=== PATIENT | female | born 1955 | race Caucasian/White ===

== ENCOUNTER → 2020-02-18 12:59 | Outpatient (BNVA) | payer MEDICARE, SELFPAY | PROVIDERS: Family Provider Internal Medicine; Visit Provider Nurse Practitioner Family | DX: J02.9 Acute pharyngitis, unspecified (principal); B37.3 Candidiasis of vulva and vagina | CPT/HCPCS: 87071; 87880 ==

== ENCOUNTER 2020-03-10 10:12 | Day surgery (SDC) | payer MEDICARE, SELFPAY ==
[2020-03-09 16:11] VITALS: BMI 26.6
[2020-03-10 10:41] VITALS: BP 104/60; PULSE 93; RESP 18; TEMP 36.3; O2SAT 98
[2020-03-10] MEDS: sodium chloride 0.9% 1,000 ML 30 ML IV (11:06)
--- NOTE | 2020-03-10 12:25 | W.PM.OPSUD ---
Surgery/Procedure H&P Update DATE OF PROCEDURE: March 10, 2020 DATE H&P PERFORMED: 03/09/20 PREOP DIAGNOSIS: obst PLANNED PROCEDURE: Operation Date: 03/10/20 11:30 Proposed Procedures p Colonoscopy 20238 K59.00(Not Applicable) - Aman Dubois MD
--- NOTE | 2020-03-10 12:39 | ANES.PREANE2 ---
Pre-Anesthetic Assessment Pre-Anesthetic Assessment: Height/Weight: Height 1.63 m Weight 70.307 kg Temp Pulse Resp BP Pulse Ox 97.3 F L 93 18 104/60 98 03/10/20 10:41 03/10/20 10:41 03/10/20 10:41 03/10/20 10:41 03/10/20 10:41 Preop Diagnosis: obst Proposed Procedure: Operation Date: 03/10/20 11:30 Proposed Procedures p Colonoscopy 91909 K59.00(Not Applicable) - Aman Dubois MD Last intake: Intake Last Liquid Date 03/09/20 Last Liquid Time 23:00 Last Solid Date 03/08/20 Last Solid Time 22:30 Social: Social History: No alcohol and No tobacco Exam: Pre-Anes Outpt Exam: alert, oriented x 3, clear to auscultation bilaterally and regular rate & rhythm Airway: Submandibular: WNL Cervical ROM: WNL MP: 2 Dentition: Other (teeth ok) History/ROS: No significant history except as noted Pulmonary: Pulmonary: None reported CV/HEM: CV/HEM: None reported : : None reported Hepatic: Hepatic: None reported GI: GI: None reported Metabolic: Metabolic: None reported Musc/skel: Musc/skel: None reported Neuropsych: Neuropsych: Anxiety and Depression Anesthetic Plan: ASA status: 2 Anesthesia: Anesthesia Evaluation and MAC Risk of > 500 ml blood loss (7ml/kg in children): No Meds/Allergies Current Medications: Current Medications Generic Name Dose Route Start Last Admin Trade Name Freq PRN Reason Stop Dose Admin Sodium Chloride 1,000 mls @ 30 ml s/hr 03/10/20 10:45 03/10/20 11:06 Sodium Chloride 0.9% IV 03/11/20 10:44 30 mls/hr .Q24H YESI Administration PFSH Anesthesia PFSH: Family History Father Diabetes Mother Cancer Other Heart disease Social History Smoking and tobacco status: never smoked Alcohol intake: never Marital status: service: No History of recent travel: No Current gender identity: Female Data Anesthesia Cardiac Studies: No Data to Display
[2020-03-10 12:40] VITALS: BP 107/61; PULSE 82; RESP 16; TEMP 36.7; O2SAT 100
--- NOTE | 2020-03-10 12:41 | ANE.PACU2 ---
Inpatient post-anesthesia follow up: Airway intact: Yes Vital signs: Temperature 98.0 F Pulse Rate 82 Respiratory Rate 16 Blood Pressure 107/61 Pulse Oximetry 100 Oxygen Delivery Me thod Nasal Cannula Oxygen Flow Rate 3.0 Fraction of Inspir ed Oxygen Hydration adequate: Yes Nausea and vomiting: No Mental status: Baseline
[2020-03-10 13:00] VITALS: BP 116/68; PULSE 90; RESP 20; O2SAT 100
== END 2020-03-10 13:05 | disposition home or self-care (01) ==
PROVIDERS: Visit Provider Internal Medicine
PROC: 0DJD8ZZ Inspection of Lower Intestinal Tract, Via Natural or Artificial Opening Endoscopic (ICD-10-PCS; CPT 45378; principal; 2020-03-10 11:30)
DX: K59.00 Constipation, unspecified (principal)
CPT/HCPCS: 12345; 45378; G0121; J0171; J2704; J7030

== ENCOUNTER → 2020-05-17 16:46 | Outpatient (BNVA) | payer MEDICARE, SELFPAY | PROVIDERS: Visit Provider Nurse Practitioner Family | DX: Z11.59 Encounter for screening for other viral diseases (principal); Z20.828 Contact with and (suspected) exposure to other viral communicable diseases; J06.9 Acute upper respiratory infection, unspecified | CPT/HCPCS: 87635 ==

== ENCOUNTER 2020-10-02 08:52 | Outpatient (CLI) | payer MEDICARE, SELFPAY ==
--- NOTE | 2020-10-02 08:55 | FL_ITS ---
WS: [id number] ESOPHAGRAM WITH FLUOROSCOPY HISTORY: DYSPHAGIA COMPARISON: None available. FLUOROSCOPY TIME: 1.3 minutes. Prior anterior cervical fusion in the cervical spine extending from C4 through C7. Esophagus and swallowing function: Patient swallowed the barium mixture without difficulty. No strict ures or mucosal abnormalities are identified. No webs or strictures are identified in the esophagus. Gastroesophageal reflux: None. Hiatal hernia: Very small reducible hiatal hernia. FL/FL barium swallow 26901 IMPRESSION: 1. No definite strictures or mucosal abnormalities or webs are noted in the es ophagus. 2. Small reducible hiatal hernia. 3. Prior anterior cervical fusion from C4 through C7.
== END 2020-10-02 08:53 | disposition home or self-care (01) ==
LOC: RADWPI 08:54
PROVIDERS: PCP Internal Medicine; Visit Provider Specialist
DX: R13.10 Dysphagia, unspecified (principal); K44.9 Diaphragmatic hernia without obstruction or gangrene; M43.22 Fusion of spine, cervical region
CPT/HCPCS: 74220

== ENCOUNTER 2020-10-03 09:06 | Outpatient (CLI) | payer MEDICARE, SELFPAY ==
--- NOTE | 2020-10-03 09:18 | FL_ITS ---
WS: [id number] MODIFIED BARIUM SWALLOW TECHNIQUE: Modified barium swallow with speech therapy using multiple consistencies. FLUOROSCOPY TIME: 3.1 minutes. CLINICAL INFORMATION: Other dysphagia COMPARISON: None. FINDINGS: Multiple consistencies utilized. Prior postoperative changes ACDF C4-C7. Delayed oropharyngeal phase with early spillage and pooling in the vallecula. Pooling in the vallecula duplicate patient's sympto ms. Penetration with thin liquids. No jose aspiration. Barium tablet delayed transit with stasis in the vallecula. Patient unable to swallow barium tablet. FL/FL barium swallow modifd 60074 IMPRESSION: 1. Delayed oropharyngeal phase with early spillage and pooling in the vallecul a. 2. Penetration with thin liquids.
== END 2020-10-03 09:07 | disposition home or self-care (01) ==
PROVIDERS: PCP Internal Medicine; Visit Provider Specialist
DX: R49.0 Dysphonia (principal)
CPT/HCPCS: 74230; 92611

== ENCOUNTER → 2021-02-09 00:01 | Outpatient (BNVA) | payer MEDICARE, SELFPAY | PROVIDERS: PCP Internal Medicine; Visit Provider Internal Medicine | DX: Z20.822 Contact with and (suspected) exposure to COVID-19 (principal); R06.00 Dyspnea, unspecified | CPT/HCPCS: 87635 ==

== ENCOUNTER 2021-02-15 10:35 | Outpatient (CLI) | payer MEDICARE, SELFPAY ==
[2021-02-15 11:06] LABS: Basophils % 0.8 %; Eosinophils # 0.2 10^3/uL (0.0-0.8); Eosinophils % 3.8 %; Hematocrit 36.9 % (37.0-47.0); Hemoglobin 12.1 g/dL (11.5-15.3); Lymphocytes # 2.3 10^3/uL (0.8-4.8); Lymphocytes % 48.4 %; Mean Corpuscular HGB Conc 32.8 g/dL (30.0-36.0); Mean Corpuscular Volume 91.3 fL (81-99); Monocytes # 0.3 10^3/uL (0.2-0.9); Monocytes % 6.1 %; Neutrophils # 1.95 10^3/uL (1.8-7.7); Neutrophils % 40.7 %; Nucleated Red Blood Cells % 0 %; Platelet Count 230 10^3/cmm (130-400); Red Blood Count 4.04 10^6/uL (4.1-5.3); White Blood Count 4.8 10^3/uL (4.0-10.0)
--- NOTE | 2021-02-15 11:14 | PFTS_ITS ---
Date of Study:02/15/21 Date of Dictation: 02/16/2021 MECHANICS: Pre bronchodilator Forced vital capacity (FVC) is normal.. Pre bronchodilator Forced expiratory volume in one second (FEV1) is normal. FEV1/FVC is normal. Postbronchodilator study not performed FLOW VOLUME LOOP:normal LUNG VOLUMES: not measured DIFFUSING CAPACITY FOR CARBON MONOXIDE: not measured . INTERPRETATION: The pre bronchodilator spirometry is normal. MTDD
[2021-02-15 11:51] LABS: Alanine Aminotransferase 18 U/L (0-33); Albumin Level 4.1 g/dL (3.5-5.2); Alkaline Phosphatase 109 IU/L (35-105); Anion Gap 12.5 (5-19); Aspartate Amino Transferase 18 U/L (0-32); Blood Urea Nitrogen 9 mg/dL (8-23); Carbon Dioxide 27 mmol/L (22-29); Chloride 97 mmol/L (98-107); Globulin 2.6 g/dL (1.3-4.6); Glomerular Filtration Rate 100.3 mL/min (90-130); Glucose 85 mg/dL (65-115); Osmolality Calculated 272 mOsm/kg (285-295); Potassium 4.5 mmol/L (3.5-5.1); Sodium 132 mmol/L (136-145); Thyroid Stimulating Hormone 4.17 uIU/mL (0.27-4.20); Total Bilirubin 0.4 mg/dL (0.15-1.2); Total Protein 6.7 g/dL (6.6-8.7)
== END 2021-02-15 10:36 | disposition home or self-care (01) ==
PROVIDERS: PCP Internal Medicine; Visit Provider Internal Medicine
DX: R06.09 Other forms of dyspnea (principal)
CPT/HCPCS: 36415; 80053; 84443; 85025; 94010

== ENCOUNTER 2021-02-16 07:26 | Outpatient (CLI) | payer MEDICARE, SELFPAY ==
[2021-02-16 07:38] VITALS: BMI 25.7
--- NOTE | 2021-02-16 08:24 | NMCV_ITS ---
NM emmanuel perf SPECT r/s* [id number] Brianda Agosto Age: 65 Gender: F : 1955 Exam Date: 02/16/2021 08:24 Ordering Phys: Aman Dubois MD Technologist: AUSTEN Watkins Exam Location: [facility] Indications: DYSPNEA STRESS TEST Please see separate stress test report in [facility] for full findings IMAGE PROTOCOL Rest/Stress 1 Exercise Day Radiopharmaceutical Dose (mCi) Administration Site Administered by Rest: Tc-99m 10.6 IV AUSTEN Kumar Sestaminathan Stress:Tc-99m 32.8 IV AUSTEN Kumar Sestamibi Rest: 16-Feb-2021 60 Discovery 630 Stress: 16-Feb-2021 30 Discovery 630 Radiopharmaceutical was injected at 85 % maximum heart rate. Images obtained in supine and prone position. SPECT RESULTS Technical Quality: Excellent Raw Data Analysis: Normal Image Corrections: No attenuation or motion correction applied Summed Stress Score: 0 Summed Rest Score: 0 Summed Difference Score: 0 PERFUSION FINDINGS SPECT images demonstrate homogeneous tracer distribution throughout the myocardium. FUNCTIONAL RESULTS (calculated via Gated SPECT) Stress Image LV EF (%): 93 Stress EDV (mL):43 TID: 0.87 Stress ESV (mL):3 Rest Image LV EF (%): 93 FUNCTIONAL FINDINGS: There is normal left ventricular systolic function. IMPRESSIONS Myocardial perfusion imaging is normal. EKG segment was documented separately. Reji Yao MD (Electronically Signed) Final Date: 16 February 2021 18:30 S
--- NOTE | 2021-02-16 08:24 | ECG_ITS ---
[facility] Test Date: 2021-02-16 Pat Name: Brianda Agosto Department: Room: Gender: Female Pin Puller: : 1955 Requested By: Aman Dubois Order Number: [id number] Terrence MD: AXEL DARBY Interpretive Statements NAME OF STUDY: EXERCISE SESTAMIBI STRESS TEST INDICATION: Read EXERCISE DATA: The patient was exercised by Lobo protocol. Baseline heart rate was 82 beats per minute. Baseline blood pressure was 150/84 millimeters of mercury. Target heart rate was 155 beats per minute. Maximum heart rate achieved was 133, which was 85 % of the target heart rate. Maximum blood pressure was 184/84 millimeters of mercury. Total exercise time was 7 minutes 24 seconds. Maximum METs achieved was 10.2, maximum VO2 was 35.7. The reason for ending the test was maximum effort achieved. The patient complained of shortness of breath during the stress test, which then resolved at the end of the test. ELECTROCARDIOGRAM: BASELINE: Sinus rhythm, normal axis, no significant ST-T changes at the baseline noted. EXERCISE: At the peak exercise level, no significant ST-T changes suggestive of ischemia noted. RECOVERY: During the recovery period, heart rate dropped appropriately. No significant ST-T changes in the recovery suggestive of ischemia noted. CONCLUSION: 1. Exercise capacity fair. 2. Heart rate response was appropriate. 3. Blood pressure response was appropriate. 4. Symptoms not suggestive of ischemia. 5. Electrocardiogram portion of the stress test was not suggestive of ischemia. Electronically Signed On 03-10-2021 20:36:04 CDT by AXEL DARBY [id number]
[2021-02-16 09:40] VITALS: BP 141/69; PULSE 85
== END 2021-02-16 07:27 | disposition home or self-care (01) ==
LOC: CDL 07:31
PROVIDERS: PCP Internal Medicine; Visit Provider Internal Medicine
DX: R06.09 Other forms of dyspnea (principal)
CPT/HCPCS: 78452; 93017; A9500

== ENCOUNTER → 2021-03-07 11:05 | Outpatient (BNVA) | payer MEDICARE, SELFPAY | PROVIDERS: PCP Internal Medicine; Visit Provider Nurse Practitioner Family | DX: Z20.822 Contact with and (suspected) exposure to COVID-19 (principal); J06.9 Acute upper respiratory infection, unspecified | CPT/HCPCS: 87635 ==

== ENCOUNTER 2021-03-13 07:53 | Outpatient (CLI) | payer MEDICARE, SELFPAY ==
[2021-03-13 08:48] VITALS: BP 120/75; PULSE 85; RESP 14; TEMP 36.8; O2SAT 97
[2021-03-13 09:42] VITALS: BP 132/79; PULSE 78; RESP 16; TEMP 37.1; O2SAT 97
[2021-03-13 10:29] VITALS: BP 149/73; PULSE 83; RESP 12; TEMP 37.2; O2SAT 98
== END 2021-03-13 15:49 | disposition home or self-care (01) ==
PROVIDERS: PCP Internal Medicine; Visit Provider Nurse Practitioner Family
DX: U07.1 COVID-19 (principal)
CPT/HCPCS: 96365

== ENCOUNTER → 2021-05-24 13:56 | Outpatient (BNVA) | payer MEDICARE, SELFPAY | PROVIDERS: PCP Internal Medicine; Visit Provider Registered Nurse Neonatal Intensive Care | DX: M54.9 Dorsalgia, unspecified (principal) | CPT/HCPCS: 81000 ==

== ENCOUNTER → 2021-09-06 15:44 | Outpatient (BNVA) | payer MEDICARE, SELFPAY | PROVIDERS: PCP Internal Medicine; Visit Provider Internal Medicine | DX: U09.9 Post COVID-19 condition, unspecified (principal); H91.90 Unspecified hearing loss, unspecified ear | CPT/HCPCS: 80053; 82607; 82746; 83550; 84443 ==

== ENCOUNTER 2021-11-15 14:38 | Emergency (ER) | payer MEDICARE, SELFPAY ==
[2021-11-15 14:51] VITALS: BP 179/88; PULSE 93; RESP 18; TEMP 36.9; O2SAT 97; BMI 27.4
--- NOTE | 2021-11-15 15:14 | W.ED.FALL ---
Documented by User: Bebeto Wolff DO 11/15/21 17:50 HPI - Fall General: Chief Complaint: Fall Stated Complaint: fall/facial injury Time Seen by Provider: 11/15/21 15:03 Source: patient Mode of arrival: ambulatory Limitations: no limitations History of Present Illness: Six 6-year-old female who was standing on some boxes try and get something off an upper shelf the boxes gave way she began to fall something she was reaching for fell off hit her in the upper lip she has a laceration to the upper lip no dental injury to her teeth she denies any other injury she did land on her tailbone conestat now firmly on the ground but declines any x-rays. She did not strike her head and was no loss consciousness Patient is a 66-year-old female comes to the ED for facial injury. Patient has a laceration to upper lip. Dr. Wolff wanted me to come in and close laceration. I was not involved in any other aspect of care for this patient. MD complaint: fall Onset (ago): hour(s) Fall from: standing Fall witnessed: no Place fall occurred: home Loss of consciousness: None Length of LOC: second(s) Prolonged down time: no Symptoms prior to fall: none Location of injury: head Severity: mild Associated symptoms-after fall: Denies abdominal pain, chest pain, confusion, difficulty walking, headache(s), hematuria, lightheadedness, neck pain, numbness, short of breath, vertigo or weakness Review of Systems Const: Denies: fever(s), chills, body aches, change in appetite, fatigue or malaise ENMT: Denies: throat pain, ear or mastoid pain, nasal discharge or nasal congestion Card: Denies: chest pain or lightheadedness Resp: Denies: dyspnea, productive cough or non-productive cough GI: Denies: abdominal pain : Denies: hematuria Musc: Denies: neck pain Neuro: Denies: headache(s), difficulty walking, vertigo or confusion PFSH ED PFSH: Family History Father Diabetes Mother Cancer Other Heart disease Social History Smoking and tobacco status: never smoked Alcohol intake: never Marital status: service: No History of recent travel: No Current gender identity: Female Physical Exam Const: COMMON NORMALS: no acute distress GENERAL APPEARANCE: cooperative and comfortable ORIENTATION/CONSCIOUSNESS: Yes awake, Yes oriented to person, Yes oriented to place and Yes oriented to time HENMT: COMMON NORMALS: normocephalic and hearing grossly normal bilaterally HEAD & SCALP: normocephalic Neck/C-Spine: COMMON NORMALS: no JVD Resp: COMMON NORMALS: normal respiratory effort, No retractions, No use of accessory muscles and clear to auscultation bilaterally AUSCULTATION: clear to auscultation bilaterally Cardio: COMMON NORMALS: no JVD, regular rate, regular rhythm and No murmurs present (Cardio) RATE: regular rate RHYTHM: regular rhythm GI: COMMON NORMALS: Soft to palpation and No hepatosplenomegaly present AUSCULTATION: Yes normoactive bowel sounds PALPATION: Yes Soft to palpation, No Tenderness to palpation present (GI), No Guarding due to palpation present (GI) and Yes No hepatosplenomegaly present Extremity: COMMON NORMALS: normal to inspection, capillary refill normal, no clubbing, cyanosis or edema, no calf tenderness and no pedal edema Neuro: SENSORIUM/ORIENTATION: Yes oriented to person, Yes oriented to place and Yes oriented to time Skin: OTHER: Laceration on the upper lip through the vermilion border. Jett Burks sutured laceration see his notes. Course Vital Signs: Vital signs: Vital Signs Temperature 98.4 F 11/15/21 14:51 Pulse Rate 93 11/15/21 14:51 Respiratory Rate 18 11/15/21 14:51 Blood Pressure 179/88 11/15/21 14:51 Pulse Oximetry 97 11/15/21 14:51 MDM - Fall Medical Decision Making Dr. Wolff wanted me to perform the lip laceration closure. I was not involved in any other aspect of patient's care. Local lidocaine 1% with epi was used. 3 nonabsorbable sutures were placed to close laceration. See procedure section for details. Patient tolerated procedure well. Patient tolerated suturing well laceration evaluated well approximated. Reviewed labs and imaging with the patient discharged home sutures out in 5 to 7 days topical antibiotic twice a day follow-up as needed otherwise. Medical Records I reviewed the patient's medical records. Lab Data I reviewed the patient's lab results. : 11/15/21 15:40 11/15/21 15:[address] 11/15/21 15:15 IMPRESSION: 1. No acute intracranial findings. 2. Sinus findings as above. Laboratory Results WBC 10.2 10^3/uL (4.0-10.0) H 11/15/21 15:40 RBC 4.53 10^6/uL (4.1-5.3) 11/15/21 15:40 Hgb 13.5 g/dL (11.5-15.3) 11/15/21 15:40 Hct 40.8 % (37.0-47.0) 11/15/21 15:40 MCV 90.1 fl (81-99) 11/15/21 15:40 MCH 29.8 pg (28.0-34.0) 11/15/21 15:40 MCHC 33.1 g/dL (30.0-36.0) 11/15/21 15:40 RDW 12.0 % (12.1-15.1) L 11/15/21 15:40 Plt Count 258 10^3/cmm (130-400) 11/15/21 15:40 MPV 9.1 fL (7.4-10.4) 11/15/21 15:40 Neut % (Auto) 72.1 % 11/15/21 15:40 Lymph % (Auto) 20.3 % 11/15/21 15:40 Gilchrist % (Auto) 4.7 % 11/15/21 15:40 Eos % (Auto) 2.3 % 11/15/21 15:40 Baso % (Auto) 0.3 % 11/15/21 15:40 Neut # (Auto) 7.38 10^3/uL (1.8-7.7) 11/15/21 15:40 Lymph # (Auto) 2.1 10^3/uL (0.8-4.8) 11/15/21 15:40 Gilchrist # (Auto) 0.5 10^3/uL (0.2-0.9) 11/15/21 15:40 Eos # (Auto) 0.2 10^3/uL (0.0-0.8) 11/15/21 15:40 Baso # (Auto) 0.0 10^3/uL (0.0-0.1) 11/15/21 15:40 Nucleated RBC % (auto) 0 % 11/15/21 15:40 Nucleated RBCs # 0.0 /100WBC 11/15/21 15:40 Sodium 134 mmol/L (136-145) L 11/15/21 15:40 Potassium 3.9 mmol/L (3.5-5.1) 11/15/21 15:40 Chloride 98 mmol/L (98-107) 11/15/21 15:40 Carbon Dioxide 26 mmol/L (22-29) 11/15/21 15:40 Anion Gap 13.9 (5-19) 11/15/21 15:40 BUN 11 mg/dL (8-23) 11/15/21 15:40 Creatinine 0.6 mg/dL (0.5-0.9) 11/15/21 15:40 GFR Calculation 100.0 mL/min (90-130) 11/15/21 15:40 Glucose 103 mg/dL (65-115) 11/15/21 15:40 Calculated Osmolality 278 mOsm/kg (285-295) L 11/15/21 15:40 Calcium 9.8 mg/dL (8.5-10.5) 11/15/21 15:40 Total Bilirubin 0.4 mg/dL (0.15-1.2) 11/15/21 15:40 AST 19 U/L (0-32) 11/15/21 15:40 ALT 18 U/L (0-33) 11/15/21 15:40 Alkaline Phosphatase 111 IU/L (35-105) H 11/15/21 15:40 Total Protein 7.3 g/dL (6.6-8.7) 11/15/21 15:40 Albumin 4.8 g/dL (3.5-5.2) 11/15/21 15:40 Globulin 2.5 g/dL (1.3-4.6) 11/15/21 15:40 Discharge Plan Discharge Patient Disposition: Home Clinical Impression: Laceration of lip Condition: Stable Prescriptions: New Antibiotic (bacitracin zinc) 500 unit/gram ointment 1 applic topical BID Qty: 14 0RF No Action tretinoin 0.1 % cream 1 applic topical DAILY Qty: 45 3RF Rx Instructions: Apply pea-sized amount to clean, dry face nightly mupirocin 2 % ointment 1 applic topical BID Qty: 22 1RF Rx Instructions: to open areas until healed clindamycin phosphate 1 % lotion 1 applic topical QAM Qty: 60 3RF Rx Instructions: Apply thin film to face every morning PreserVision AREDS-2 [id number] lg-xtey-bz-mg capsule 1 tab PO ONCE 0RF Rx Instructions: administer with meals Probiotic-10 (with inulin) 10 billion cell -100 mg capsule 2 mg PO DAILY 0RF duloxetine [Cymbalta] 60 mg capsule,delayed release(DR/EC) 60 mg PO DAILY Qty: 90 3RF vitamin D3-folic acid 1 tab PO DAILY 0RF Nexium 20 mg Capsule,Delayed Release(Dr/Ec) 20 mg PO DAILY 0RF biotin 10 mg Tablet 10 mg PO DAILY 0RF magnesium 30 mg Tablet 30 mg PO DAILY 0RF Multi For Her 18 mg iron-600 mcg-40 mcg Capsule 1 tab-cap PO DAILY 0RF Discharge Orders: Discharge ED (Routine); Ordered 11/15/21 Ordered By: Bebeto Wolff Referrals: Aman Dubois MD [Primary Care Provider] - Discharge Diet: Usual diet Discharge Activity: Resume usual activity Patient Instructions: Laceration (ED), Opioid Safety Activity Restrictions/Additional Instructions: Sutures to be removed in 5 to 7 days at your primary care doctor's office apply topical antibiotic twice a day to the lip. Coding Level of Care Code ED Taxi Driver Supervisor for Chg Fwd Exam Problem Focused Documented by User: BRETT Miranda 11/15/21 16:44 HPI - Fall General: Chief Complaint: Fall Stated Complaint: fall/facial injury Time Seen by Provider: 11/15/21 15:03 History of Present Illness: Patient is a 66-year-old female comes to the ED for facial injury. Patient has a laceration to upper lip. Dr. Wolff wanted me to come in and close laceration. I was not involved in any other aspect of care for this patient. Review of Systems Skin/Breast: Reports: new lesions (Laceration upper lip) PFSH ED PFSH: Family History Father Diabetes Mother Cancer Other Heart disease Social History Smoking and tobacco status: never smoked Alcohol intake: never Marital status: service: No History of recent travel: No Current gender identity: Female Physical Exam HENMT: FACE & SINUS: laceration upper lip linear (Involves the vermilion border.) and superficial; not actively bleeding and no pulsatile bleeding Facial laceration size: 0.75 cm Procedures Laceration Laceration 1: Site: lip (Upper lip and involves vermilion border) Size (cm): 0.75 Description: linear and involves shauna border Depth: simple, single layer Local Anesthetic: lidocaine 1% and with epi Amount of anesthesia used (mL): 5 Pre-repair: irrigated extensively (Irrigated extensively with normal saline.) Skin layer closed with: nylon Size (cm): 6-0 Number of sutures: 3 Technique: simple, interrupted Course Vital Signs: Vital signs: Vital Signs Temperature 98.4 F 11/15/21 14:51 Pulse Rate 93 11/15/21 14:51 Respiratory Rate 18 11/15/21 14:51 Blood Pressure 179/88 11/15/21 14:51 Pulse Oximetry 97 11/15/21 14:51 MDM - Fall Medical Decision Making Dr. Wolff wanted me to perform the lip laceration closure. I was not involved in any other aspect of patient's care. Local lidocaine 1% with epi was used. 3 nonabsorbable sutures were placed to close laceration. See procedure section for details. Patient tolerated procedure well. Lab Data I reviewed the patient's lab results. : 11/15/21 15:40 11/15/21 15:[address] 11/15/21 15:15 IMPRESSION: 1. No acute intracranial findings. 2. Sinus findings as above. Laboratory Results WBC 10.2 10^3/uL (4.0-10.0) H 11/15/21 15:40 RBC 4.53 10^6/uL (4.1-5.3) 11/15/21 15:40 Hgb 13.5 g/dL (11.5-15.3) 11/15/21 15:40 Hct 40.8 % (37.0-47.0) 11/15/21 15:40 MCV 90.1 fl (81-99) 11/15/21 15:40 MCH 29.8 pg (28.0-34.0) 11/15/21 15:40 MCHC 33.1 g/dL (30.0-36.0) 11/15/21 15:40 RDW 12.0 % (12.1-15.1) L 11/15/21 15:40 Plt Count 258 10^3/cmm (130-400) 11/15/21 15:40 MPV 9.1 fL (7.4-10.4) 11/15/21 15:40 Neut % (Auto) 72.1 % 11/15/21 15:40 Lymph % (Auto) 20.3 % 11/15/21 15:40 Gilchrist % (Auto) 4.7 % 11/15/21 15:40 Eos % (Auto) 2.3 % 11/15/21 15:40 Baso % (Auto) 0.3 % 11/15/21 15:40 Neut # (Auto) 7.38 10^3/uL (1.8-7.7) 11/15/21 15:40 Lymph # (Auto) 2.1 10^3/uL (0.8-4.8) 11/15/21 15:40 Gilchrist # (Auto) 0.5 10^3/uL (0.2-0.9) 11/15/21 15:40 Eos # (Auto) 0.2 10^3/uL (0.0-0.8) 11/15/21 15:40 Baso # (Auto) 0.0 10^3/uL (0.0-0.1) 11/15/21 15:40 Nucleated RBC % (auto) 0 % 11/15/21 15:40 Nucleated RBCs # 0.0 /100WBC 11/15/21 15:40 Sodium 134 mmol/L (136-145) L 11/15/21 15:40 Potassium 3.9 mmol/L (3.5-5.1) 11/15/21 15:40 Chloride 98 mmol/L (98-107) 11/15/21 15:40 Carbon Dioxide 26 mmol/L (22-29) 11/15/21 15:40 Anion Gap 13.9 (5-19) 11/15/21 15:40 BUN 11 mg/dL (8-23) 11/15/21 15:40 Creatinine 0.6 mg/dL (0.5-0.9) 11/15/21 15:40 GFR Calculation 100.0 mL/min (90-130) 11/15/21 15:40 Glucose 103 mg/dL (65-115) 11/15/21 15:40 Calculated Osmolality 278 mOsm/kg (285-295) L 11/15/21 15:40 Calcium 9.8 mg/dL (8.5-10.5) 11/15/21 15:40 Total Bilirubin 0.4 mg/dL (0.15-1.2) 11/15/21 15:40 AST 19 U/L (0-32) 11/15/21 15:40 ALT 18 U/L (0-33) 11/15/21 15:40 Alkaline Phosphatase 111 IU/L (35-105) H 11/15/21 15:40 Total Protein 7.3 g/dL (6.6-8.7) 11/15/21 15:40 Albumin 4.8 g/dL (3.5-5.2) 11/15/21 15:40 Globulin 2.5 g/dL (1.3-4.6) 11/15/21 15:40 Discharge Plan Discharge Patient Disposition: Home Clinical Impression: Laceration of lip Condition: Stable Prescriptions: New Antibiotic (bacitracin zinc) 500 unit/gram ointment 1 applic topical BID Qty: 14 0RF No Action tretinoin 0.1 % cream 1 applic topical DAILY Qty: 45 3RF Rx Instructions: Apply pea-sized amount to clean, dry face nightly mupirocin 2 % ointment 1 applic topical BID Qty: 22 1RF Rx Instructions: to open areas until healed clindamycin phosphate 1 % lotion 1 applic topical QAM Qty: 60 3RF Rx Instructions: Apply thin film to face every morning PreserVision AREDS-2 [id number] bo-nece-yr-mg capsule 1 tab PO ONCE 0RF Rx Instructions: administer with meals Probiotic-10 (with inulin) 10 billion cell -100 mg capsule 2 mg PO DAILY 0RF duloxetine [Cymbalta] 60 mg capsule,delayed release(DR/EC) 60 mg PO DAILY Qty: 90 3RF vitamin D3-folic acid 1 tab PO DAILY 0RF Nexium 20 mg Capsule,Delayed Release(Dr/Ec) 20 mg PO DAILY 0RF biotin 10 mg Tablet 10 mg PO DAILY 0RF magnesium 30 mg Tablet 30 mg PO DAILY 0RF Multi For Her 18 mg iron-600 mcg-40 mcg Capsule 1 tab-cap PO DAILY 0RF Discharge Orders: Discharge ED (Routine); Ordered 11/15/21 Ordered By: Bebeto Wolff Referrals: Aman Dubois MD [Primary Care Provider] - Discharge Diet: Usual diet Discharge Activity: Resume usual activity Patient Instructions: Laceration (ED), Opioid Safety Activity Restrictions/Additional Instructions: Sutures to be removed in 5 to 7 days at your primary care doctor's office apply topical antibiotic twice a day to the lip. Coding Level of Care Code ED Taxi Driver Supervisor for Adrian Liu Exam Problem Focused
--- NOTE | 2021-11-15 15:15 | CTR_ITS ---
PROCEDURE INFORMATION: Exam: CT Head Without Contrast Exam date and time: 11/15/2021 3:44 PM Age: 66 years old Clinical indication: Injury or trauma; Fall; Blunt trauma (contusions or hematomas); Injury date: 11/15/21 TECHNIQUE: Imaging protocol: Computed tomography of the head without contrast. Radiation optimization: All CT scans at this facility use at least one of these dose optimization techniques: automated exposure control; mA and/or kV adjustment per patient size (includes targeted exams where dose is matched to clinical indication); or iterative reconstruction. COMPARISON: XA FL barium swallow modifd [id number] 10/03/2020 11:13 AM RADIATION DOSE METRICS: Total DLP (mGy-cm): 850.42 FINDINGS: Brain: Normal. No hemorrhage. Unremarkable white matter. No mass effect. Cerebral ventricles: No ventriculomegaly. Paranasal sinuses: Mild mucosal thickening in the maxillary, sphenoid, ethmoid and frontal sinuses. Small amount of debris is also seen in the frontal sinus. Probable small amount of fluid in the left maxillary sinus. Mastoid air cells: Visualized mastoid air cells are well aerated. Bones/joints: Unremarkable. No acute fracture. Soft tissues: Unremarkable. CT/CT head wo con* [id number] IMPRESSION: 1. No acute intracranial findings. 2. Sinus findings as above.
[2021-11-15 15:48] LABS: Basophils % 0.3 %; Eosinophils # 0.2 10^3/uL (0.0-0.8); Eosinophils % 2.3 %; Hematocrit 40.8 % (37.0-47.0); Hemoglobin 13.5 g/dL (11.5-15.3); Lymphocytes # 2.1 10^3/uL (0.8-4.8); Lymphocytes % 20.3 %; Mean Corpuscular HGB Conc 33.1 g/dL (30.0-36.0); Mean Corpuscular Hemoglobin 29.8 pg (28.0-34.0); Mean Corpuscular Volume 90.1 fl (81-99); Mean Platelet Volume 9.1 fL (7.4-10.4); Monocytes # 0.5 10^3/uL (0.2-0.9); Monocytes % 4.7 %; Neutrophils # 7.38 10^3/uL (1.8-7.7); Neutrophils % 72.1 %; Nucleated Red Blood Cells % 0 %; Platelet Count 258 10^3/cmm (130-400); Red Blood Count 4.53 10^6/uL (4.1-5.3); White Blood Count 10.2 10^3/uL (4.0-10.0)
[2021-11-15] MEDS: tetanus-dipt-pertussis 0.5 mL SDV IM (16:00)
[2021-11-15 16:15] LABS: Alanine Aminotransferase 18 U/L (0-33); Albumin Level 4.8 g/dL (3.5-5.2); Alkaline Phosphatase 111 IU/L (35-105); Anion Gap 13.9 (5-19); Aspartate Amino Transferase 19 U/L (0-32); Blood Urea Nitrogen 11 mg/dL (8-23); Calcium 9.8 mg/dL (8.5-10.5); Carbon Dioxide 26 mmol/L (22-29); Chloride 98 mmol/L (98-107); Creatinine Clr Calc Pharmacy 67.5411; Globulin 2.5 g/dL (1.3-4.6); Glucose 103 mg/dL (65-115); Osmolality Calculated 278 mOsm/kg (285-295); Potassium 3.9 mmol/L (3.5-5.1); Sodium 134 mmol/L (136-145); Total Bilirubin 0.4 mg/dL (0.15-1.2); Total Protein 7.3 g/dL (6.6-8.7)
== END 2021-11-15 16:40 | disposition home or self-care (01) ==
PROVIDERS: Emergency Provider Family Medicine; PCP Internal Medicine
DX: S01.511A Laceration without foreign body of lip, initial encounter (principal); W17.89XA Other fall from one level to another, initial encounter
CPT/HCPCS: 12011; 70450; 80053; 85025; 90471; 90715; 99283

== ENCOUNTER 2023-03-06 11:28 | Outpatient (CLI) | payer MEDICARE, SELFPAY ==
--- NOTE | 2023-03-06 11:38 | MM_ITS ---
WS: [id number] BILATERAL SCREENING DIGITAL TOMOSYNTHESIS MAMMOGRAM WITH CAD HISTORY: SCREENING COMPARISON: 09/24/2017 and 06/02/2015 Bilateral CC and MLO views with tomosynthesis and synthetic mammography submitted. Computer aided det ection analyzed. Breast composition: The breasts are heterogeneously dense, which may obscure small masses. No suspici ous masses, microcalcifications or architectural distortion. Benign calcifications. Asymmetry upper-o uter quadrant RIGHT breast is stable. MM/[place] [id number] IMPRESSION: BI-RADS: 2-Benign FOLLOW UP: 1 Year Follow-up
--- NOTE | 2023-03-06 12:09 | XR_ITS ---
WS: [id number] DEXA (DUAL ENERGY X-RAY ABSORPTIOMETRY) Bone mineral density was performed using a [employer] machine. HISTORY: SCREENING FOR OSTEOPOROSIS COMPARISON: None available. Lumbar spine BMD (L1-L4): 0.924 g/cm2 T score: -2.1 Z score: -0.8 Total hip BMD: Left: 0.932 g/cm2. T score: -0.6 Z score: 0.5 Right: 0.897 g/cm2. T score: -0.9 Z score: 0.3 10 year probability of a major osteoporotic fracture is 9.6%. XR/XR DEXA axial skeleton* [id number] IMPRESSION: OSTEOPENIA based upon the WHO classification for females.
== END 2023-03-06 11:29 | disposition home or self-care (01) ==
LOC: RAD 11:36 → MOBLMAM 11:37
PROVIDERS: PCP Internal Medicine; Visit Provider Nurse Practitioner Family
DX: Z12.31 Encounter for screening mammogram for malignant neoplasm of breast (principal); Z13.820 Encounter for screening for osteoporosis; M85.80 Other specified disorders of bone density and structure, unspecified site
CPT/HCPCS: 77063; 77067; 77080

== ENCOUNTER → 2023-04-16 13:42 | Outpatient (BNVA) | payer MEDICARE, SELFPAY | PROVIDERS: PCP Nurse Practitioner Family; Visit Provider Nurse Practitioner Family | DX: L02.02 Furuncle of face (principal); L57.0 Actinic keratosis; L81.4 Other melanin hyperpigmentation; L57.8 Other skin changes due to chronic exposure to nonionizing radiation; L70.5 Acne excoriee | CPT/HCPCS: 17000; 17003; 99214 ==

== ENCOUNTER 2023-04-22 13:45 | Outpatient (CLI) | payer MEDICARE, SELFPAY ==
--- NOTE | 2023-04-22 13:58 | CT_ITS ---
WS: [id number] CT ABDOMEN AND PELVIS NONCONTRAST HISTORY: LLQ ABDOMINAL PAIN TECHNIQUE: Imaging performed through the abdomen and pelvis. Coronal and sagittal reformats are submi tted. All CT scans at [facility] use at least one of these dose optimization techniques: auto mated exposure control; mA and/or kV adjustment per patient size (includes targeted exams where dose is matched to clinical indication); or iterative reconstruction. DLP: 446.30 mGy.cm COMPARISON: 08/10/2009 Lower thorax: Lung bases are clear. Visualized heart is normal. No hiatal hernia. Liver: Normal size liver. There are a few scattered low-attenuation lesions within the liver which we re present in 2008. Gallbladder: Prior cholecystectomy. Pancreas: Normal size and attenuation. Normal pancreatic duct. No pancreatitis or mass. Spleen: Normal size spleen with granulomata. Adrenal glands: Normal. No mass. Right kidney: Normal size kidney with no mass or hydronephrosis. Left kidney: Normal size kidney with no mass or hydronephrosis. Aorta: Normal abdominal aorta, no aneurysm or atherosclerosis. No free fluid, intraperitoneal air or significant lymphadenopathy. GI tract: Well distended stomach with oral contrast. No small bowel obstruction. Moderate diffuse con stipation. No significant diverticular burden. Normal appendix. Abdominal wall: Negative. No hernia. Pelvis: Prior hysterectomy. No free fluid or pelvic mass. Well distended urinary bladder. Osseous structures: L5 anterolisthesis by 6 mm. Anterolisthesis has progressed since 2008. Bilateral L5 pars defects. IMPRESSION: 1. No acute abdominopelvic abnormalities. 2. Normal appendix. 3. Prior cholecystectomy and hysterectomy. 4. No ascites or adenopathy. 5. Moderate diffuse constipation. 6. Grade 1 L5 anterolisthesis with bilateral pars defects. 7. 7. Anterolisthesis has progressed since 2008.
== END 2023-04-22 13:46 | disposition home or self-care (01) ==
LOC: RAD 13:49
PROVIDERS: PCP Nurse Practitioner Family; Visit Provider Nurse Practitioner Family
DX: K59.00 Constipation, unspecified (principal); R10.32 Left lower quadrant pain; Z90.49 Acquired absence of other specified parts of digestive tract; Z90.710 Acquired absence of both cervix and uterus
CPT/HCPCS: 74176

== ENCOUNTER 2024-07-15 14:24 | Outpatient (CLI) | payer MEDICARE, SELFPAY ==
--- NOTE | 2024-07-15 14:30 | XRR_ITS ---
PROCEDURE INFORMATION: Exam: XR Chest Exam date and time: 07/15/2024 2:37 PM Age: 69 years old Clinical indication: Prior surgery; Surgery date: 6+ months; Surgery type: C spine; Patient HX: X5 weeks ago pneumonia, patient states doctor said it had cleared up but remained in upper airway, dry constant cough x5 weeks TECHNIQUE: Imaging protocol: Radiologic exam of the chest. Views: 2 views. COMPARISON: CT abdomen pelvis con [id number] 04/22/2023 2:50 PM FINDINGS: Lungs: Unremarkable. No consolidation. Pleural spaces: Unremarkable. No pleural effusion. No pneumothorax. Heart/Mediastinum: Unremarkable. No cardiomegaly. Bones/joints: Anterior cervical fusion. XR/XR chest 2V* [id number] IMPRESSION: No acute findings.
== END 2024-07-15 14:25 | disposition home or self-care (01) ==
PROVIDERS: PCP Nurse Practitioner Family; Visit Provider Nurse Practitioner Family
DX: R05.8 Other specified cough (principal); J98.8 Other specified respiratory disorders; M43.22 Fusion of spine, cervical region
CPT/HCPCS: 71046

== ENCOUNTER → 2024-07-22 14:06 | Outpatient (BNVA) | payer MEDICARE, SELFPAY | PROVIDERS: PCP Nurse Practitioner Family; Visit Provider Dermatology | DX: M72.0 Palmar fascial fibromatosis [Dupuytren] (principal); D22.39 Melanocytic nevi of other parts of face; L01.01 Non-bullous impetigo; L30.9 Dermatitis, unspecified; L57.0 Actinic keratosis | CPT/HCPCS: 11102; 17000; 99214 ==

== ENCOUNTER 2024-08-02 03:59 | Emergency (ER) | payer MEDICARE, SELFPAY ==
[2024-08-02 04:10] VITALS: BP 139/64; PULSE 75; RESP 20; TEMP 36.7; O2SAT 98; BMI 24.9
--- NOTE | 2024-08-02 04:35 | XRR_ITS ---
PROCEDURE INFORMATION: Exam: XR Left Hip Exam date and time: 08/02/2024 4:36 AM Age: 69 years old Clinical indication: Patient HX: C/O left hip pain. No injury. TECHNIQUE: Imaging protocol: Radiologic exam of the left hip. Views: 2 or 3 views hip with pelvis when performed. COMPARISON: CT abdomen pelvis wo con [id number] 04/22/2023 2:50 PM FINDINGS: Bones/joints: No fracture or dislocation. Slight articular surface narrowing and spurring. No acute fracture. Soft tissues: Unremarkable. XR/XR hip LT 2-3V wo/w pel* [id number] IMPRESSION: Mild degenerative changes.
--- NOTE | 2024-08-02 05:01 | CTR_ITS ---
PROCEDURE INFORMATION: Exam: CT Pelvis With Contrast Exam date and time: 08/02/2024 5:22 AM Age: 69 years old Clinical indication: Prior surgery; Surgery date: 6+ months; Surgery type: Partial hysterectomy; Patient HX: C/O severe left hip pain with no injury. ; Additional info: Left hip nontraumatic severe pain TECHNIQUE: Imaging protocol: Computed tomography of the pelvis with contrast. Radiation optimization: All CT scans at this facility use at least one of these dose optimization techniques: automated exposure control; mA and/or kV adjustment per patient size (includes targeted exams where dose is matched to clinical indication); or iterative reconstruction. Contrast material: OMNI 350; Contrast volume: 100 ml; Contrast route: INTRAVENOUS (IV); COMPARISON: CT abdomen pelvis wo con [id number] 04/22/2023 2:50 PM RADIATION DOSE METRICS: Total DLP (mGy-cm): 357.69 FINDINGS: Intestine: Visualized small and large intestine are unremarkable. Appendix: No evidence of appendicitis. Intraperitoneal space: Unremarkable. No free air. No significant fluid collection. Lymph nodes: Unremarkable. No enlarged lymph nodes. Reproductive: Hysterectomy. Urinary bladder: Normal. No mass. Bones/joints: Mild symmetrical degenerative changes of each hip with moderate surface narrowing and spurring. No fracture or dislocation. No lytic or sclerotic bone lesion. Sclerotic focus in the left iliac abutment of the upper SI joint is unchanged since 04/22/2023 and probably a bone island. Bilateral L5 spondylolysis with minimal spondylolisthesis. Soft tissues: Unremarkable. CT/CT pelvis w con* [id number] IMPRESSION: No acute abnormality. Bilateral L5 spondylolysis with spondylolisthesis.
[2024-08-02] MEDS: morphine 4 mg/mL SDV 1 mL IVP ×2 (05:19→07:35)
[2024-08-02] MEDS: ketorolac 30 mg/mL INJ IVP (05:19)
[2024-08-02] MEDS: ondansetron 2 mg/ML SDV 2 mL 4 MG IVP (05:20)
--- NOTE | 2024-08-02 05:22 | W.ED.EXTPRO ---
Documented by User: Adam Rodriguez, DO 08/02/24 19:36 HPI - Extremity Problem General: Chief complaint: Extremity Problem,Nontraumatic Stated complaint: left severe hip pain Time Seen by Provider: 08/02/24 04:54 History of Present Illness: 69-year-old female presenting with left hip pain. Pain is deemed severe, is anterior more than posterior. She is unable to bear weight or move the hip. She has had pain going on for days now. Nontraumatic. She did not fall. No numbness or tingling. No radicular pain down the leg. Although she does have some posterior hip pain, no lumbar back pain. No fever. No numbness or tingling. Related Data Home Medications Medication Instructions Recorded Confirmed vitamin D3-folic acid 1 tab PO DAILY 03/09/20 08/02/24 biotin 10 mg tablet 10 mg PO DAILY 11/15/21 08/02/24 [id number] fumarate 18 1 tab-cap PO DAILY 11/15/21 08/02/24 mg-FA 600 mcg-vit K 40 mcg capsule (Multi For Her) hydroxyzine HCl 25 mg tablet 25 mg PO QPM 08/02/24 08/02/24 ipratropium bromide 21 mcg (0.03 2 spray intranasal BID 08/02/24 08/02/24 %) nasal spray levothyroxine 50 mcg tablet 50 mcg PO DAILY 08/02/24 08/02/24 (Synthroid) mupirocin 2 % topical ointment 1 applic topical DAILY 08/02/24 08/02/24 Previous Rx's Medication Instructions Recorded duloxetine 60 mg capsule,delayed 60 mg PO DAILY #90 caps 05/10/21 release (Cymbalta) diclofenac sodium 75 mg 75 mg PO Q12H PRN pain #20 tabs 08/02/24 tablet,delayed release hydrocodone 5 mg-acetaminophen 325 1 tab PO Q6H PRN pain #25 tabs 08/02/24 mg tablet prednisone 20 mg tablet 20 mg PO TID #15 tabs 08/02/24 tizanidine 4 mg tablet 4 mg PO Q6H PRN muscle spasticity 08/02/24 #20 tabs Allergies Allergy/AdvReac Type Severity Reaction Status Date / Time No Known Allergies Allergy Verified 08/02/24 04:14 PFSH ED PFSH: Family History Father Diabetes Mother Cancer Other Heart disease Social History Smoking and tobacco/nicotine status: never used tobacco/nicotine Alcohol intake: never Substance/Drug Use: never Marital status: service: No Current gender identity: Female Physical Exam Const: GENERAL APPEARANCE: cooperative, in distress (in pain) and anxious; not frail appearing HENMT: COMMON NORMALS: normocephalic, atraumatic and Normal external nose present HEAD & SCALP: normocephalic and atraumatic FACE & SINUS: normal facial exam and face symmetric NOSE: Normal external nose present Eye: COMMON NORMALS: Equal, round and reactive pupils present and EOMs intact bilaterally PUPIL: Yes Equal, round and reactive pupils present Neck/C-Spine: GENERAL: Yes trachea midline Chest: CHEST: Yes Symmetrical chest wall rise Resp: COMMON NORMALS: normal respiratory effort, No retractions, No use of accessory muscles and clear to auscultation bilaterally AUSCULTATION: clear to auscultation bilaterally Cardio: COMMON NORMALS: regular rate and regular rhythm RATE: regular rate RHYTHM: regular rhythm GI: COMMON NORMALS: Normal to inspection, nondistended, normoactive bowel sounds present Extremity: COMMON NORMALS: no pedal edema NARRATIVE EXTREMITY EXAM: Exam of the left lower extremity reveals significant tenderness over the anterior joint line of the hip. There are some tenderness along the proximal thigh anteriorly. No edema to the leg. No knee tenderness. No lateral hip tenderness or trochanteric tenderness. Mild gluteal tenderness. No deformity of the leg. Sensation is normal distally pulses are normal distally. Neuro: THEA COMA SCALE: document GCS findings Bryan coma scale eye opening: Spontaneous Bryan coma scale verbal response: Orientated Bryan coma scale motor response: Obey commands Thea coma scale total score: 15 SENSORY EXAM: Yes extremities (intact) Psych: COMMON NORMALS: speech normal SPEECH: Yes normal speech Skin: COMMON NORMALS: no rashes or lesions noted GENERAL SKIN EXAM: no rashes or lesions noted Course Vital Signs: Vital signs: Vital Signs Temperature 98.1 F 08/02/24 04:10 Pulse Rate 94 08/02/24 10:17 Respiratory Rate 20 H 08/02/24 04:10 Blood Pressure 120/59 08/02/24 10:17 Pulse Oximetry 98 08/02/24 10:17 Oxygen Delivery Me thod Room Air 08/02/24 09:07 MDM - Extremity (Nontraumatic) Medical Decision Making 69-year-old female with severe nontraumatic left hip pain. She is afebrile. Vitals are otherwise stable. X-ray is essentially normal. Laboratory and CT are pending. Differential includes septic left hip, avascular necrosis, toxic synovitis, psoas abscess, pelvic abscess, low ureteral stone, etc. Patient will be checked out at shift change to the oncoming physician. Lab Data 08/02/24 05:15 08/02/24 05:15 Radiology Impressions Hip/Pelvis X-Ray 08/02/24 04:35 IMPRESSION: Mild degenerative changes. Pelvis CT 08/02/24 05:01 IMPRESSION: No acute abnormality. Bilateral L5 spondylolysis with spondylolisthesis. Laboratory Results WBC 8.56 10^3/uL (3.29-11.43) 08/02/24 05:15 RBC 4.25 10^6/uL (3.85-5.65) 08/02/24 05:15 Hgb 13.00 g/dL (11.27-16.99) 08/02/24 05:15 Hct 38.1 % (36-47) 08/02/24 05:15 MCV 89.6 fl (85-98) 08/02/24 05:15 MCH 30.6 pg (27-33) 08/02/24 05:15 MCHC 34.1 g/dL (30-55) 08/02/24 05:15 RDW 11.9 % (12.1-15.1) L 08/02/24 05:15 Plt Count 247 10^3/cmm (157-399) 08/02/24 05:15 MPV 9.0 fL (7.4-10.4) 08/02/24 05:15 Neut % (Auto) 74.5 % 08/02/24 05:15 Lymph % (Auto) 15.5 % 08/02/24 05:15 [place] % (Auto) 6.1 % 08/02/24 05:15 Eos % (Auto) 3.3 % 08/02/24 05:15 Baso % (Auto) 0.4 % 08/02/24 05:15 Neut # (Auto) 6.38 10^3/uL (1.8-7.7) 08/02/24 05:15 Lymph # (Auto) 1.3 10^3/uL (0.8-4.8) 08/02/24 05:15 [place] # (Auto) 0.5 10^3/uL (0.2-0.9) 08/02/24 05:15 Eos # (Auto) 0.3 10^3/uL (0.0-0.8) 08/02/24 05:15 Baso # (Auto) 0.0 10^3/uL (0.0-0.1) 08/02/24 05:15 Nucleated RBC % (auto) 0 % 08/02/24 05:15 Nucleated RBCs # 0.0 /100WBC 08/02/24 05:15 ESR 1 mm/hr (0-15) 08/02/24 05:15 Sodium 130 mmol/L (136-145) L 08/02/24 05:15 Potassium 4.4 mmol/L (3.5-5.1) 08/02/24 05:15 Chloride 95 mmol/L (98-107) L 08/02/24 05:15 Carbon Dioxide 26 mmol/L (22-29) 08/02/24 05:15 Anion Gap 13.4 (5-19) 08/02/24 05:15 BUN 8 mg/dL (8-23) 08/02/24 05:15 Creatinine 0.6 mg/dL (0.5-0.9) 08/02/24 05:15 GFR Calculation 99.1 mL/min (90-130) 08/02/24 05:15 Glucose 123 mg/dL (65-115) H 08/02/24 05:15 Calculated Osmolality 270 mOsm/kg (285-295) L 08/02/24 05:15 Calcium 9.1 mg/dL (8.5-10.5) 08/02/24 05:15 Total Bilirubin 0.3 mg/dL (0.15-1.2) 08/02/24 05:15 AST 20 U/L (0-32) 08/02/24 05:15 ALT 20 U/L (0-33) 08/02/24 05:15 Alkaline Phosphatase 107 U/L (35-105) H 08/02/24 05:15 C-Reactive Protein 3.0 mg/L (0.0-4.9) 08/02/24 05:15 Total Protein 7.2 g/dL (6.6-8.7) 08/02/24 05:15 Albumin 4.4 g/dL (3.5-5.2) 08/02/24 05:15 Globulin 2.8 g/dL (1.3-4.6) 08/02/24 05:15 Urine Color Yellow (Yellow) 08/02/24 07:25 Urine Appearance Clear (CLEAR) 08/02/24 07:25 Urine pH 8.0 (5-7) A 08/02/24 07:25 Ur Specific [place] 1.034 (1.005-1.030) H 08/02/24 07:25 Urine Protein Negative (Negative) 08/02/24 07:25 Urine Glucose (UA) Negative (Normal) 08/02/24 07:25 Urine Ketones Negative (Negative) 08/02/24 07:25 Urine Blood Negative (Negative) 08/02/24 07:25 Urine Nitrate Positive (Negative) A 08/02/24 07:25 Urine Bilirubin Negative (Negative) 08/02/24 07:25 Urine Urobilinogen 0.2 mg/dL (Negative) 08/02/24 07:25 Ur Leukocyte Esterase Negative (Negative) 08/02/24 07:25 Urine RBC 0-2 /hpf (0-2) 08/02/24 07:25 Urine WBC 0-5 /hpf (0-5) 08/02/24 07:25 Ur Squamous Epith Cells 0-5 /hpf (0-5) 08/02/24 07:25 Amorphous Sediment Not Reportable 08/02/24 07:25 Urine Bacteria Exceeds /hpf (NONE) 08/02/24 07:25 Hyaline Casts 0.40 /lpf 08/02/24 07:25 Discharge Plan Discharge Patient Disposition: Home Clinical Impression: Lumbar back pain with radiculopathy affecting left lower extremity Condition: Stable Prescriptions: New tizanidine 4 mg tablet 4 mg PO Q6H PRN (Reason: muscle spasticity) Qty: 20 0RF Rx Instructions: do not exceed 3 doses per 24 hrs hydrocodone-acetaminophen 5-325 mg tablet 1 tab PO Q6H PRN (Reason: pain) Qty: 25 0RF prednisone 20 mg tablet 20 mg PO TID Qty: 15 0RF Rx Instructions: 1 p.o. 3 times daily x3 days, 1 p.o. twice daily x2 days, 1 p.o. daily x2 days diclofenac sodium 75 mg tablet,delayed release (DR/EC) 75 mg PO Q12H PRN (Reason: pain) Qty: 20 0RF No Action duloxetine [Cymbalta] 60 mg capsule,delayed release(DR/EC) 60 mg PO DAILY Qty: 90 3RF vitamin D3-folic acid 1 tab PO DAILY biotin 10 mg Tablet 10 mg PO DAILY Multi For Her 18 mg iron-600 mcg-40 mcg Capsule 1 tab-cap PO DAILY levothyroxine [Synthroid] 50 mcg tablet 50 mcg PO DAILY hydroxyzine HCl 25 mg tablet 25 mg PO QPM mupirocin 2 % ointment 1 applic TOPICAL DAILY ipratropium bromide 21 mcg (0.03 %) spray,non-aerosol 2 spray INTRANASAL BID Discharge Orders: Discharge ED (Routine); Ordered 08/02/24 Ordered By: Bebeto Wolff Referrals: Yoli Jaramillo FNP [Primary Care Provider] - Discharge Diet: Usual diet Discharge Activity: Increase activity as tolerated Patient Instructions: Opioid Safety, Pain Management Activity Restrictions/Additional Instructions: Thank you for choosing [facility] for your healthcare needs today. It is very important that you follow up as instructed or that you return to the Emergency Department should you have concerns or if your condition changes or worsens in any way. You are seen today with left hip pain with no history of trauma. Imaging did not show any acute fractures. There are some degenerative change in her lower back. Recommend starting steroid taper tomorrow pain medications as needed. Sign Out Sign Out Data: Patient Sign Out occurred on 08/02/24 at 06:30. Patient's care was discussed, and care was transferred from Adam Rodriguez DO to Bebeto Wolff DO. Coding Level of Care Code ED Order To Delivery Supervisor for Chg Fwd Documented by User: Bebeto Wolff DO 08/02/24 12:40 HPI - Extremity Problem General: Chief complaint: Extremity Problem,Nontraumatic Stated complaint: left severe hip pain Time Seen by Provider: 08/02/24 04:54 Related Data Home Medications Medication Instructions Recorded Confirmed vitamin D3-folic acid 1 tab PO DAILY 03/09/20 08/02/24 biotin 10 mg tablet 10 mg PO DAILY 11/15/21 08/02/24 [id number] fumarate 18 1 tab-cap PO DAILY 11/15/21 08/02/24 mg-FA 600 mcg-vit K 40 mcg capsule (Multi For Her) hydroxyzine HCl 25 mg tablet 25 mg PO QPM 08/02/24 08/02/24 ipratropium bromide 21 mcg (0.03 2 spray intranasal BID 08/02/24 08/02/24 %) nasal spray levothyroxine 50 mcg tablet 50 mcg PO DAILY 08/02/24 08/02/24 (Synthroid) mupirocin 2 % topical ointment 1 applic topical DAILY 08/02/24 08/02/24 Previous Rx's Medication Instructions Recorded duloxetine 60 mg capsule,delayed 60 mg PO DAILY #90 caps 05/10/21 release (Cymbalta) diclofenac sodium 75 mg 75 mg PO Q12H PRN pain #20 tabs 08/02/24 tablet,delayed release hydrocodone 5 mg-acetaminophen 325 1 tab PO Q6H PRN pain #25 tabs 08/02/24 mg tablet prednisone 20 mg tablet 20 mg PO TID #15 tabs 08/02/24 tizanidine 4 mg tablet 4 mg PO Q6H PRN muscle spasticity 08/02/24 #20 tabs Allergies Allergy/AdvReac Type Severity Reaction Status Date / Time No Known Allergies Allergy Verified 08/02/24 04:14 PFSH ED PFSH: Family History Father Diabetes Mother Cancer Other Heart disease Social History Smoking and tobacco/nicotine status: never used tobacco/nicotine Alcohol intake: never Substance/Drug Use: never Marital status: service: No Current gender identity: Female Physical Exam Neuro: THEA COMA SCALE: document GCS findings Thea coma scale total score: 15 Course Vital Signs: Vital signs: Vital Signs Temperature 98.1 F 08/02/24 04:10 Pulse Rate 94 08/02/24 10:17 Respiratory Rate 20 H 08/02/24 04:10 Blood Pressure 120/59 08/02/24 10:17 Pulse Oximetry 98 08/02/24 10:17 Oxygen Delivery Me thod Room Air 08/02/24 09:07 MDM - Extremity (Nontraumatic) Medical Decision Making 69-year-old female with severe nontraumatic left hip pain. She is afebrile. Vitals are otherwise stable. X-ray is essentially normal. Laboratory and CT are pending. Differential includes septic left hip, avascular necrosis, toxic synovitis, psoas abscess, pelvic abscess, low ureteral stone, etc. Patient will be checked out at shift change to the oncoming physician. Care assumed at change of shift there is no evidence of acute intra-abdominal pathology white count is normal her straight leg raising test is positive. Patient indicates low back pain prickly on the left side radiating to the left buttock and hip does not go into the thigh. Put her on tizanidine state taper of steroids hydrocodone diclofenac follow-up with primary care suspect she may have nerve impingement. Will set her up to follow-up with Dr. Bean. Medical Records I reviewed the patient's medical records. Lab Data I reviewed the patient's lab results. 08/02/24 05:15 08/02/24 05:15 Radiology Impressions Hip/Pelvis X-Ray 08/02/24 04:35 IMPRESSION: Mild degenerative changes. Pelvis CT 08/02/24 05:01 IMPRESSION: No acute abnormality. Bilateral L5 spondylolysis with spondylolisthesis. Laboratory Results WBC 8.56 10^3/uL (3.29-11.43) 08/02/24 05:15 RBC 4.25 10^6/uL (3.85-5.65) 08/02/24 05:15 Hgb 13.00 g/dL (11.27-16.99) 08/02/24 05:15 Hct 38.1 % (36-47) 08/02/24 05:15 MCV 89.6 fl (85-98) 08/02/24 05:15 MCH 30.6 pg (27-33) 08/02/24 05:15 MCHC 34.1 g/dL (30-55) 08/02/24 05:15 RDW 11.9 % (12.1-15.1) L 08/02/24 05:15 Plt Count 247 10^3/cmm (157-399) 08/02/24 05:15 MPV 9.0 fL (7.4-10.4) 08/02/24 05:15 Neut % (Auto) 74.5 % 08/02/24 05:15 Lymph % (Auto) 15.5 % 08/02/24 05:15 [place] % (Auto) 6.1 % 08/02/24 05:15 Eos % (Auto) 3.3 % 08/02/24 05:15 Baso % (Auto) 0.4 % 08/02/24 05:15 Neut # (Auto) 6.38 10^3/uL (1.8-7.7) 08/02/24 05:15 Lymph # (Auto) 1.3 10^3/uL (0.8-4.8) 08/02/24 05:15 [place] # (Auto) 0.5 10^3/uL (0.2-0.9) 08/02/24 05:15 Eos # (Auto) 0.3 10^3/uL (0.0-0.8) 08/02/24 05:15 Baso # (Auto) 0.0 10^3/uL (0.0-0.1) 08/02/24 05:15 Nucleated RBC % (auto) 0 % 08/02/24 05:15 Nucleated RBCs # 0.0 /100WBC 08/02/24 05:15 ESR 1 mm/hr (0-15) 08/02/24 05:15 Sodium 130 mmol/L (136-145) L 08/02/24 05:15 Potassium 4.4 mmol/L (3.5-5.1) 08/02/24 05:15 Chloride 95 mmol/L (98-107) L 08/02/24 05:15 Carbon Dioxide 26 mmol/L (22-29) 08/02/24 05:15 Anion Gap 13.4 (5-19) 08/02/24 05:15 BUN 8 mg/dL (8-23) 08/02/24 05:15 Creatinine 0.6 mg/dL (0.5-0.9) 08/02/24 05:15 GFR Calculation 99.1 mL/min (90-130) 08/02/24 05:15 Glucose 123 mg/dL (65-115) H 08/02/24 05:15 Calculated Osmolality 270 mOsm/kg (285-295) L 08/02/24 05:15 Calcium 9.1 mg/dL (8.5-10.5) 08/02/24 05:15 Total Bilirubin 0.3 mg/dL (0.15-1.2) 08/02/24 05:15 AST 20 U/L (0-32) 08/02/24 05:15 ALT 20 U/L (0-33) 08/02/24 05:15 Alkaline Phosphatase 107 U/L (35-105) H 08/02/24 05:15 C-Reactive Protein 3.0 mg/L (0.0-4.9) 08/02/24 05:15 Total Protein 7.2 g/dL (6.6-8.7) 08/02/24 05:15 Albumin 4.4 g/dL (3.5-5.2) 08/02/24 05:15 Globulin 2.8 g/dL (1.3-4.6) 08/02/24 05:15 Urine Color Yellow (Yellow) 08/02/24 07:25 Urine Appearance Clear (CLEAR) 08/02/24 07:25 Urine pH 8.0 (5-7) A 08/02/24 07:25 Ur Specific [place] 1.034 (1.005-1.030) H 08/02/24 07:25 Urine Protein Negative (Negative) 08/02/24 07:25 Urine Glucose (UA) Negative (Normal) 08/02/24 07:25 Urine Ketones Negative (Negative) 08/02/24 07:25 Urine Blood Negative (Negative) 08/02/24 07:25 Urine Nitrate Positive (Negative) A 08/02/24 07:25 Urine Bilirubin Negative (Negative) 08/02/24 07:25 Urine Urobilinogen 0.2 mg/dL (Negative) 08/02/24 07:25 Ur Leukocyte Esterase Negative (Negative) 08/02/24 07:25 Urine RBC 0-2 /hpf (0-2) 08/02/24 07:25 Urine WBC 0-5 /hpf (0-5) 08/02/24 07:25 Ur Squamous Epith Cells 0-5 /hpf (0-5) 08/02/24 07:25 Amorphous Sediment Not Reportable 08/02/24 07:25 Urine Bacteria Exceeds /hpf (NONE) 08/02/24 07:25 Hyaline Casts 0.40 /lpf 08/02/24 07:25 All radiology interpretation(s) finalized by discharge Discharge Plan Discharge Patient Disposition: Home Clinical Impression: Lumbar back pain with radiculopathy affecting left lower extremity Condition: Stable Prescriptions: New tizanidine 4 mg tablet 4 mg PO Q6H PRN (Reason: muscle spasticity) Qty: 20 0RF Rx Instructions: do not exceed 3 doses per 24 hrs hydrocodone-acetaminophen 5-325 mg tablet 1 tab PO Q6H PRN (Reason: pain) Qty: 25 0RF prednisone 20 mg tablet 20 mg PO TID Qty: 15 0RF Rx Instructions: 1 p.o. 3 times daily x3 days, 1 p.o. twice daily x2 days, 1 p.o. daily x2 days diclofenac sodium 75 mg tablet,delayed release (DR/EC) 75 mg PO Q12H PRN (Reason: pain) Qty: 20 0RF No Action duloxetine [Cymbalta] 60 mg capsule,delayed release(DR/EC) 60 mg PO DAILY Qty: 90 3RF vitamin D3-folic acid 1 tab PO DAILY biotin 10 mg Tablet 10 mg PO DAILY Multi For Her 18 mg iron-600 mcg-40 mcg Capsule 1 tab-cap PO DAILY levothyroxine [Synthroid] 50 mcg tablet 50 mcg PO DAILY hydroxyzine HCl 25 mg tablet 25 mg PO QPM mupirocin 2 % ointment 1 applic TOPICAL DAILY ipratropium bromide 21 mcg (0.03 %) spray,non-aerosol 2 spray INTRANASAL BID Discharge Orders: Discharge ED (Routine); Ordered 08/02/24 Ordered By: Bebeto Wolff Referrals: Yoli Jaramillo, [employer]OCIATE [Primary Care Provider] - Discharge Diet: Usual diet Discharge Activity: Increase activity as tolerated Patient Instructions: Opioid Safety, Pain Management Activity Restrictions/Additional Instructions: Thank you for choosing [facility] for your healthcare needs today. It is very important that you follow up as instructed or that you return to the Emergency Department should you have concerns or if your condition changes or worsens in any way. You are seen today with left hip pain with no history of trauma. Imaging did not show any acute fractures. There are some degenerative change in her lower back. Recommend starting steroid taper tomorrow pain medications as needed. Sign Out Sign Out Data: Patient Sign Out occurred on 08/02/24 at 06:30. Patient's care was discussed, and care was transferred from Adam Rodriguez DO to Bebeto Wolff DO. Coding Level of Care Code ED Order To Delivery Supervisor for Adrian Liu
[2024-08-02] MEDS: iohexol 350 mg/mL 500 mL Btl (per mL) IV (05:25)
[2024-08-02 05:28] LABS: Basophils % 0.4 %; Eosinophils # 0.3 10^3/uL (0.0-0.8); Eosinophils % 3.3 %; Hematocrit 38.1 % (36-47); Lymphocytes # 1.3 10^3/uL (0.8-4.8); Lymphocytes % 15.5 %; Mean Corpuscular HGB Conc 34.1 g/dL (30-55); Mean Corpuscular Hemoglobin 30.6 pg (27-33); Mean Corpuscular Volume 89.6 fl (85-98); Monocytes # 0.5 10^3/uL (0.2-0.9); Monocytes % 6.1 %; Neutrophils # 6.38 10^3/uL (1.8-7.7); Neutrophils % 74.5 %; Nucleated Red Blood Cells % 0 %; Platelet Count 247 10^3/cmm (157-399); Red Blood Count 4.25 10^6/uL (3.85-5.65); Red Cell Distribution Width 11.9 % (12.1-15.1); White Blood Count 8.56 10^3/uL (3.29-11.43)
--- NOTE | 2024-08-02 05:40 | USCV_ITS ---
Jaronjason Brianda Age: 69 Gender: F : 1955 Exam Date: 08/02/2024 05:54 Ordering Phys: Adam Rodriguez DO Technologist: Exam Location: [facility] [place] Indication: lt hip pain PROCEDURES: Venous duplex imaging was performed in only the left lower extremity. The following venous structures were evaluated: common femoral vein, profunda vein, proximal portion of the greater saphenous vein, superficial femoral vein, and the popliteal vein. In addition, the posterior tibial and peroneal trunk were evaluated. FINDINGS: Normal 2-D Doppler and augmentation and compressibility throughout the lower extremity venous structures. Additional imaging through the proximal calf veins also reveals no thrombus. Limited evaluation of the greater saphenous vein is patent with no thrombus. CONCLUSIONS No DVT left lower extremity. Dr. Ashley Nails DO (Electronically Signed) Final Date: 02 August 2024 10:57 S
[2024-08-02 05:48] LABS: Alanine Aminotransferase 20 U/L (0-33); Albumin Level 4.4 g/dL (3.5-5.2); Alkaline Phosphatase 107 U/L (35-105); Anion Gap 13.4 (5-19); Aspartate Amino Transferase 20 U/L (0-32); Blood Urea Nitrogen 8 mg/dL (8-23); Calcium 9.1 mg/dL (8.5-10.5); Carbon Dioxide 26 mmol/L (22-29); Chloride 95 mmol/L (98-107); Creatinine Clr Calc Pharmacy 61.9514; Globulin 2.8 g/dL (1.3-4.6); Glomerular Filtration Rate 99.1 mL/min (90-130); Glucose 123 mg/dL (65-115); Osmolality Calculated 270 mOsm/kg (285-295); Potassium 4.4 mmol/L (3.5-5.1); Sodium 130 mmol/L (136-145); Total Bilirubin 0.3 mg/dL (0.15-1.2); Total Protein 7.2 g/dL (6.6-8.7)
[2024-08-02 05:52] LABS: Erythrocyte Sedimentation Rate 1 mm/hr (0-15)
[2024-08-02 08:23] LABS: Bilirubin Urine Negative (Negative); Blood Urine Negative (Negative); Glucose Urine UA Negative (Normal); Ketones Urine Negative (Negative); Leukocyte Esterase Urine Negative (Negative); Nitrate Urine Positive (Negative); Protein Urine Negative (Negative); Urine Appearance Clear (CLEAR); Urine Color Yellow (Yellow); Urobilinogen Urine 0.2 mg/dL (Negative)
[2024-08-02 08:25] LABS: Add Urine Microscopic? YES; Bacteria Urine EXCEEDS /hpf; RBC Urine 0-2 /hpf (0-2); Squamous Epithelial Cell Urine 0-5 /hpf (0-5); WBC Urine 0-5 /hpf (0-5)
[2024-08-02 08:29] LABS: Specific Gravity, Urine 1.034 (1.005-1.030)
--- NOTE | 2024-08-02 08:59 | PC.NURSE ---
ASSUMED CARE OF PATIENT AT 0815
[2024-08-02 09:07] VITALS: BP 116/71; PULSE 97; O2SAT 95
[2024-08-02 10:17] VITALS: BP 120/59; PULSE 94; O2SAT 98
--- NOTE | 2024-08-04 12:47 | DCPLANNER ---
Message sent to Ortho for follow up
== END 2024-08-02 10:17 | disposition home or self-care (01) ==
PROVIDERS: Emergency Medicine; Emergency Provider Family Medicine; PCP Nurse Practitioner Family
DX: M54.16 Radiculopathy, lumbar region (principal)
CPT/HCPCS: 72193; 73502; 80053; 81001; 85025; 85651; 86140; 93971; 96374; 99285; J1885; J2270; J2405

== ENCOUNTER 2024-08-16 10:54 | Outpatient (CLI) | payer MEDICARE, SELFPAY ==
--- NOTE | 2024-08-16 10:57 | MR_ITS ---
WS: [id number] MRI LUMBAR SPINE NONCONTRAST TECHNIQUE: Sagittal T1, T2 and STIR imaging. Axial T1 and T2 imaging. CLINICAL INFORMATION: LEFT leg pain FINDINGS: Mild lumbar curve. No acute compression. Disc bulging worse at L4-L5 and L5-S1. Grade 1 anterolisthes is L5 on S1 with chronic spondylolysis. Small central protrusion T11-T12. L1-L2: Mild facet arthropathy. Spinal canal and foramen are patent. L2-L3: Mild annular bulging. Mild facet arthropathy. Mild LEFT foraminal narrowing. Spinal canal and RIGHT foramen are patent. L3-L4: Mild annular bulging. Mild facet arthropathy. Mild LEFT and no significant RIGHT foraminal augustine rowing. Mild facet arthropathy. L4-L5: Mild disc bulging with slight effacement of the ventral thecal sac. Mild facet arthropathy. Mi ld RIGHT and no significant LEFT foraminal narrowing. Narrowing of bilateral subarticular recess. L5-S1: Grade 1 anterolisthesis L5 on S1 with chronic spondylolysis. Spinal canal is patent. Moderate facet arthropathy. Mild bilateral foraminal narrowing. Visualized pelvic bony structures: Normal. Paravertebral soft tissues: Normal. MR/MR lumbar spine wo con* [id number] IMPRESSION: 1. Mild lumbar curve. No acute compression. No high-grade central canal stenos is. 2. Grade 1 anterolisthesis L5 on S1 with chronic spondylolysis. 3. Annular bulging L4-5 with narrowing of the subarticular recess bilaterally. Mild RIGHT foraminal narrowing at this level. 4. Mild annular bulging L3-4 with slight narrowing of the subarticular recess bilaterally. Mild LEFT foraminal narrowing. 5. Mild bilateral L5-S1 bony foraminal narrowing with slight impingement on th e exiting L5 nerve roots bilaterally. 6. LEFT foraminal protrusion L2-3 impinges the exiting LEFT L2 nerve root with moderate LEFT foraminal narrowing.
== END 2024-08-16 10:55 | disposition home or self-care (01) ==
PROVIDERS: PCP Nurse Practitioner Family; Visit Provider Nurse Practitioner Family
DX: M54.16 Radiculopathy, lumbar region (principal); M51.360 Other intervertebral disc degeneration, lumbar region with discogenic back pain only; M43.16 Spondylolisthesis, lumbar region; M51.24 Other intervertebral disc displacement, thoracic region; M47.896 Other spondylosis, lumbar region
CPT/HCPCS: 72148

== ENCOUNTER → 2024-08-31 10:52 | Outpatient (BNVA) | payer MEDICARE, SELFPAY | PROVIDERS: PCP Nurse Practitioner Family; Referring Provider Nurse Practitioner Family; Visit Provider Orthopaedic Surgery | DX: M43.17 Spondylolisthesis, lumbosacral region (principal); M54.50 Low back pain, unspecified | CPT/HCPCS: 72110; 99204 ==

== ENCOUNTER 2024-09-11 06:30 | Outpatient (RCR) | payer MEDICARE, SELFPAY | END 2024-10-08 23:59 | disposition home or self-care (01) | LOC: TPT 06:30 | PROVIDERS: Visit Provider Orthopaedic Surgery | DX: M54.50 Low back pain, unspecified (principal); G89.29 Other chronic pain | CPT/HCPCS: 97162 ==

== ENCOUNTER → 2024-11-09 09:10 | Outpatient (BNVA) | payer MEDICARE, SELFPAY | PROVIDERS: PCP Nurse Practitioner Family; Referring Provider Orthopaedic Surgery; Visit Provider Anesthesiology Pain Medicine | DX: M54.9 Dorsalgia, unspecified (principal) | CPT/HCPCS: 99204 ==

== ENCOUNTER → 2024-12-07 15:37 | Outpatient (BNVA) | payer MEDICARE, SELFPAY | PROVIDERS: PCP Nurse Practitioner Family; Visit Provider Nurse Practitioner Family | DX: L81.4 Other melanin hyperpigmentation (principal); M72.0 Palmar fascial fibromatosis [Dupuytren]; D22.39 Melanocytic nevi of other parts of face; L57.8 Other skin changes due to chronic exposure to nonionizing radiation; D17.1 Benign lipomatous neoplasm of skin and subcutaneous tissue of trunk; L50.8 Other urticaria; B07.8 Other viral warts; R20.8 Other disturbances of skin sensation; L53.8 Other specified erythematous conditions; L29.89 Other pruritus | CPT/HCPCS: 17110; 99213 ==